=== PATIENT | female | born 1990 | race Two or more races ===

== ENCOUNTER 2020-04-18 19:46 | Inpatient (IN) | payer MEDICAID ==
[~2020-04-18] VITALS: Ht 160 cm; Wt 69.4 kg
[2020-04-18 20:38] VITALS: BP 104/61
[2020-04-18 20:48] LABS: APPEARANCE,URINE CLOUDY (CLEAR); GLUCOSE, URINE (UA) 100 mg/dL (NEGATIVE); KETONES,URINE TRACE mg/dL (NEGATIVE); LEUKOCYTE ESTERASE ,URINE LARGE (NEGATIVE); NITRATE,URINE NEGATIVE (NEGATIVE); OCCULT BLOOD,URINE NEGATIVE (NEGATIVE); PROTEIN,URINE POS 1+ (NEGATIVE)
[2020-04-18 20:52] LABS: BILIRUBIN,URINE PRELIM. POSITIVE (NEGATIVE)
[2020-04-18 20:57] LABS: BACTERIA,URINE Many /HPF (None Seen); SQUAMOUS EPITHELIAL CELL,UR Many /LPF (None Seen)
[2020-04-18 20:58] LABS: CALCIUM OXALATE CRYSTALS,UR Few /LPF (None Seen); RBC,URINE None Seen /HPF (0-2)
[2020-04-18] MEDS ORDERED: RINGERS SOLUTION,LACTATED 1,000 ML IV ONE (21:39)
[2020-04-18] MEDS ORDERED: NIFEdipine 10 MG CAPSULE PO ONE (21:45)
[2020-04-18] MEDS: AMPICILLIN SODIUM 2 GM/NS 100 ML IV SCH (21:58)
[2020-04-18] MEDS: RINGERS SOLUTION,LACTATED 1,000 ML IV SCH ×2 (21:59→23:11)
[2020-04-18] MEDS: BETAMETHASONE SOLUSPAN 6 MG/ML 5 ML VIAL IM SCH (22:21)
[2020-04-18 22:43] LABS: BASOPHILS % (AUTO) 0.4 % (0.0-2.0); EOSINOPHILS % (AUTO) 2.2 % (1.0-6.0); HEMATOCRIT 28.8 % (36-46); HEMOGLOBIN 9.4 g/dL (12.0-16.0); LYMPHOCYTES # (AUTO) 2.2 K/uL (1.0-4.8); LYMPHOCYTES % (AUTO) 22.2 % (22.0-44.0); MEAN CORPUSCULAR HEMOGLOBIN 26.3 pg (26.0-34.0); MEAN CORPUSCULAR HGB CONC 32.5 G/dL (31.0-37.0); MEAN CORPUSCULAR VOLUME 81 fL (80-100); MONOCYTES # (AUTO) 0.7 K/uL (0.1-1.0); MONOCYTES % (AUTO) 7.4 % (2.0-9.0); NEUTROPHILS # (AUTO) 6.7 K/uL (1.8-7.7); NEUTROPHILS % (AUTO) 67.8 % (40.0-70.0); PLATELET COUNT (AUTO)-OB 197 K/uL (150-450); RED BLOOD CELL COUNT(AUTO) 3.56 MIL/uL (4.00-5.20); RED CELL DISTRIBUTION WIDTH 15.3 % (11.5-14.5)
[2020-04-18 23:42] LABS: APPEARANCE,URINE CLEAR (CLEAR); BILIRUBIN,URINE NEGATIVE (NEGATIVE); GLUCOSE, URINE (UA) NEGATIVE (NEGATIVE); KETONES,URINE NEGATIVE (NEGATIVE); LEUKOCYTE ESTERASE ,URINE NEGATIVE (NEGATIVE); NITRATE,URINE NEGATIVE (NEGATIVE); OCCULT BLOOD,URINE NEGATIVE (NEGATIVE); PROTEIN,URINE TRACE (NEGATIVE)
[2020-04-19] MEDS: AMPICILLIN SODIUM 2 GM/NS 100 ML IV SCH ×3 (04:07→16:02)
[2020-04-19] MEDS: RINGERS SOLUTION,LACTATED 1,000 ML IV SCH ×2 (04:11→14:20)
[2020-04-19] MEDS: BETAMETHASONE SOLUSPAN 6 MG/ML 5 ML VIAL IM SCH ×2 (10:02→22:39)
[2020-04-19] MEDS ORDERED: OXYTOCIN 30 UNITS/LACT RINGERS 500 ML IV ONE (10:18)
[2020-04-19] MEDS ORDERED: FentaNYL CITRATE-PF 100 MCG/2 ML VIAL IVP PRN (10:30)
[2020-04-19] MEDS ORDERED: LIDOCAINE/PF 1% 30 ML VIAL INJ PRN (10:30)
[2020-04-19] MEDS ORDERED: METHYLERGONOVINE MALEATE 0.2 MG/ML VIAL IM PRN (10:30)
[2020-04-19] MEDS ORDERED: METOCLOPRAMIDE HCL 5 MG/ML 2 ML VIAL IVP PRN (10:30)
[2020-04-19] MEDS ORDERED: CITRIC ACID/SODIUM CITRATE 30 ML SOLUTION UDCUP PO PRN (10:30)
[2020-04-19] MEDS ORDERED: OXYGEN THERAPY IH SCH (20:00)
[2020-04-20] MEDS: RINGERS SOLUTION,LACTATED 1,000 ML IV SCH ×2 (01:21→09:32)
[2020-04-20 11:01] LABS: BASOPHILS % (AUTO) 0.3 % (0.0-2.0); EOSINOPHILS % (AUTO) 0.1 % (1.0-6.0); HEMATOCRIT 25.2 % (36-46); HEMOGLOBIN 8.3 g/dL (12.0-16.0); LYMPHOCYTES # (AUTO) 1.1 K/uL (1.0-4.8); LYMPHOCYTES % (AUTO) 6.9 % (22.0-44.0); MEAN CORPUSCULAR HEMOGLOBIN 26.4 pg (26.0-34.0); MEAN CORPUSCULAR HGB CONC 32.8 G/dL (31.0-37.0); MEAN CORPUSCULAR VOLUME 80 fL (80-100); MONOCYTES # (AUTO) 0.7 K/uL (0.1-1.0); MONOCYTES % (AUTO) 4.3 % (2.0-9.0); NEUTROPHILS # (AUTO) 14.1 K/uL (1.8-7.7); PLATELET COUNT (AUTO)-OB 183 K/uL (150-450); RED BLOOD CELL COUNT(AUTO) 3.14 MIL/uL (4.00-5.20); RED CELL DISTRIBUTION WIDTH 15.6 % (11.5-14.5)
[2020-04-20 11:05] LABS: NEUTROPHILS % (AUTO) 88.4 % (40.0-70.0)
[2020-04-20] MEDS ORDERED: ACETAMINOPHEN 325 MG TABLET PO ONE (13:15)
== END 2020-04-20 14:10 | disposition left against medical advice (07) | DRG 563 ==
LOC: 4S 19:46 → OBSVTOIN 20:20 → INTOOBSV 20:20 → UNDOADMOB 20:20 → 4S 20:20 → PREINTOOBSV 05-23 20:20
PROVIDERS: ADMIT Obstetrics & Gynecology; ATTEND Obstetrics & Gynecology
DX: O60.03 Preterm labor without delivery, third trimester (principal); Z20.828 Contact with and (suspected) exposure to other viral communicable diseases; Z53.29 Procedure and treatment not carried out because of patient's decision for other reasons; Z3A.35 35 weeks gestation of pregnancy
CPT/HCPCS: 76811; 76816; 80307; 86850; 86900; 86901; 87086; 89060; J0290; J0702; J7120